=== PATIENT | male | born 1965 | race Caucasian/White ===

== ENCOUNTER 2019-02-16 00:44 | Emergency (ER) | payer SELFPAY ==
[2019-02-16] MEDS ORDERED: IBUPROFEN 400 MG TABLET PO ONE (00:51)
--- NOTE | 2019-02-16 00:57 | Emergency Department Record ---
History of Present Illness - General Chief Complaint: Back Pain/Injury Stated Complaint: BACK INJURY Time Seen by Provider: 02/16/19 00:44 Source: Patient Mode of Arrival: Ambulatory Limitations: No limitations - History of Present Illness Initial Comments: 53 yo male presents to ED for evaluation following a crush injury to the low back. Patient reports that he works at the [employer], was moving several large pieces by remote when he became pinned between tow large metallic resulting in injury to the low-lumbar region. Patient denies other injury on examination, denies health problems at his baseline. Patient does not use anticoagulation medications at his baseline. Patient denies the need for analgesia on examination. MD Complaint: Back pain Onset/Timin -: Hour(s) Similar Symptoms Previously: No Place: Work Radiation: Buttocks Severity: Moderate Quality: Aching Consistency: Constant Improves With: Supine Worsens With: Movement, Sitting upright Associated Symptoms: Denies other symptoms Review of Systems Constitutional: Denies: Chills, Fever, Malaise, Night sweats Eyes: Denies: Eye discharge, Eye pain ENT: Denies: Congestion, Ear pain, Epistaxis Respiratory: Denies: Cough, Dyspnea Cardiovascular: Denies: Chest pain, Dyspnea on exertion Endocrine: Denies: Fatigue, Heat or cold intolerance Gastrointestinal: Denies: Abdominal pain, Nausea, Vomiting Genitourinary: Denies: Incontinence, Retention Musculoskeletal: Reports: Back pain. Denies: Arthralgia, Gout, Joint swelling Skin: Reports: Bruising. Denies: Change in color Neurological: Denies: Abnormal gait, Confusion, Headache, Seizure Psychiatric: Denies: Anxiety Hematological/Lymphatic: Denies: Anemia, Blood Clots Physical Exam - General General Appearance: Alert, Oriented x3, Cooperative, Mild distress Limitations: No limitations - Head Head exam: Atraumatic, Normocephalic, Normal inspection Head exam detail: negative: Abrasion, Contusion, Mccloud's sign, General tenderness, Hematoma, Laceration - Eye Eye exam: Normal appearance. negative: Conjunctival injection, Periorbital swelling, Periorbital tenderness, Scleral icterus - ENT Ear exam: negative: Auricular hematoma, Auricular trauma Nasal Exam: negative: Active bleeding, Discharge, Dried blood, Foreign body Mouth exam: negative: Drooling, Laceration, Muffled voice, Tongue elevation - Neck Neck exam: Normal inspection. negative: Meningismus, Tenderness - Respiratory Respiratory exam: Normal lung sounds bilaterally. negative: Rales, Respiratory distress, Rhonchi, Stridor - Cardiovascular Cardiovascular Exam: Regular rate, Normal rhythm, Normal heart sounds - GI/Abdominal GI/Abdominal exam: Soft. negative: Rebound, Rigid, Tenderness - Rectal Rectal exam: Deferred - exam: Deferred - Extremities Extremities exam: Normal inspection. negative: Pedal edema, Tenderness - Back Back exam: Reports: Paraspinal tenderness, Other (Ecchymsis to the sacral region bilaterally c/w hematoma.). Denies: CVA tenderness (R), CVA tenderness (L) - Neurological Neurological exam: Alert, Normal gait, Oriented X3 - Psychiatric Psychiatric exam: Normal affect, Normal mood - Skin Skin exam: Normal color. negative: Abrasion Type of lesion: negative: abrasion Course - Reevaluation(s) Reevaluation #1: 02/16/19 01:36 CT Abdomen and Pelvis: Fracture of the sacrum involving the 4th/5th segments extending to the coccyx Sacral hematoma Patient was updated on all results, will place orthopedics consult for follow-up to ensure proper healing of the sacrum with Dr. Wills. Patient continues to deny the need for analgesia Patient appears stable for discharge at this time. Disposition Disposition: Discharge Clinical Impression: Hematoma of sacrum Qualifiers: Encounter type: initial encounter Qualified Code(s): S30.0XXA - Contusion of lower back and pelvis, initial encounter Sacral fracture, closed Qualifiers: Encounter type: initial encounter Zone of sacrum fracture: unspecified portion of sacrum Qualified Code(s): S32.10XA - Unspecified fracture of sacrum, initial encounter for closed fracture Disposition: Home, Self-Care Condition: (2) Stable Instructions: Hematoma (ED) Additional Instructions: Return to ED if your symptoms worsen or if you have any concerns. Ice, Ibuprofen as directed. Follow-up with [facility] in 1-3 days as directed. Follow-up with Dr. Wills in 3-5 days as directed. Referrals: Blair Wills [DOCTOR OF OSTEOPATH] - [facility] Special[facility] [Provider Group] Forms: Patient Portal Access Time of Disposition: 01:39 Quality - Quality Measures Quality Measures: N/A - Blood Pressure Screening Does Patient Have Any of the Following: No Blood Pressure Classification: Pre-Hypertensive BP Reading Systolic Measurement: 150 Diastolic Measurement: 89 Screening for High Blood Pressure: < Pre-Hypertensive BP, F/U Documented > [[id number]] Pre-Hypertensive Follow-up Interventions: Referral to alternative/primary care provider.
[2019-02-16 01:14] LABS: AMPHETAMINE SCREEN URINE NOT DETECTED; BARBITURATE SCREEN URINE NOT DETECTED; BENZODIAZEPINE SCREEN URINE NOT DETECTED; COCAINE SCREEN URINE NOT DETECTED; METHADONE SCREEN URINE NOT DETECTED; METHAMPHETAMINE SCREEN NOT DETECTED; OPIATE SCREEN URINE NOT DETECTED; OXYCODONE SCREEN URINE NOT DETECTED; PHENCYCLIDINE SCREEN URINE NOT DETECTED; PROPOXYPHENE SCREEN URINE NOT DETECTED; THC SCREEN URINE NOT DETECTED; TRICYCLIC ANTIDEPRESSANT SCRN NOT DETECTED
--- NOTE | 2019-02-16 01:34 | CT SCAN REPORT ---
EXAMINATION: CT Abdomen and Pelvis without IV Contrast EXAM DATE: 02/16/2019 1:23 AM TECHNIQUE: Standard protocol CT imaging of the abdomen and pelvis was performed without intravenous c ontrast. INDICATION: back injury COMPARISON: None ENCOUNTER: Not applicable CT ABDOMEN AND PELVIS FINDINGS: Lung Bases: Included extent of the lung bases are clear. Hepatobiliary: The liver has a normal size with a smooth surface. There is no biliary dilatation and the gallbladder is unremarkable. Pancreas: Normal. Spleen: Normal. Adrenals: Normal. Kidneys, Ureters, & Bladder: Both kidneys have a normal size and morphology. There is no hydronephro sis. No renal calculi are present. Unremarkable ureters and urinary bladder. Gastrointestinal: The stomach and small bowel are normal with no obstruction or inflammation. The lar ge bowel is within normal limits. Reproductive Organs: Unremarkable Lymphatic System: There is no adenopathy within the abdomen or pelvis. Vasculature: Normal caliber abdominal aorta Peritoneum: No free fluid, free air, or inflammation Abdominal wall & Musculoskeletal: Nondisplaced fracture through the right aspect of fourth and fifth sacral segments with fracture extending through the right margin of the coccyx. There is associated p resacral hematoma. Chronic appearing fracture deformity of the left inferior pubic ramus. Assessment of the solid organs, soft tissues, and vascular structures is overall limited on noncontra st imaging, IMPRESSION: Nondisplaced longitudinally oriented fracture through the fourth and fifth sacral segments and extend ing through the coccyx. Presacral hematoma. Dictated by: Ellie Calderón MD on 02/16/2019 1:23 AM. .
== END 2019-02-16 01:46 | disposition home or self-care (01) ==
LOC: ER 00:44
DX: S32.10XA Unspecified fracture of sacrum, initial encounter for closed fracture (principal); S30.0XXA Contusion of lower back and pelvis, initial encounter; W23.0XXA Caught, crushed, jammed, or pinched between moving objects, initial encounter; Y92.63 Factory as the place of occurrence of the external cause; Y99.0 Civilian activity done for income or pay; F17.210 Nicotine dependence, cigarettes, uncomplicated
CPT/HCPCS: 74176; 80305; 99283; 99284